=== PATIENT | male | born 1970 | race Caucasian/White ===

== ENCOUNTER 2023-01-16 23:15 | Inpatient (IN) | payer MEDICAID ==
[~2023-01-16] VITALS: Ht 182.9 cm; Wt 81.8 kg
[~2023-01-16 23:15] MED LIST: ALBU8HFA PO; BECL10.6 INH; FAMO-49 PO; HYDR-3965 PO; MULT-1085 PO; ROSU10TA2 PO; TIZA4CAP PO; TRAZ-251 PO
[2023-01-16] MEDS ORDERED: TETanus/Pertussis (Acell)/Diphther VAC/PF (Tdap-Adult) 0.5ml syringe IMVAC ONE (23:30)
[2023-01-16] MEDS ORDERED: amox tr/potassium clavulanate 875/125mg TAB PO ONE (23:30)
[2023-01-17] VITALS (19 sets, daily range): BP systolic 126–159; BP diastolic 65–94; PULSE 63–106; RESP 14–25; TEMP 97.8–99.8; O2SAT 94–100
[2023-01-17] MEDS ORDERED: TETanus/Pertussis (Acell)/Diphther VAC/PF (Tdap-Adult) 0.5ml syringe IMVAC ONE (00:40)
[2023-01-17] MEDS ORDERED: amox tr/potassium clavulanate 875/125mg TAB PO ONE (00:40)
[2023-01-17] MEDS ORDERED: CefTRIAXone 2gm/D5W 50ml BAG 50 ML IV ONE (00:50)
[2023-01-17] MEDS ORDERED: normal saline 1000ML IV soln IV ONE (00:50)
[2023-01-17] MEDS ORDERED: vancomycin/NS 1 GM ADD-VANTAGE 250 ML IV ONE (00:55)
[2023-01-17] MEDS ORDERED: HYDROmorphone 1 mg/ml syringe IV ONE ×3 (01:10→03:10)
[2023-01-17] MEDS ORDERED: ACET-75 PO (01:39)
[2023-01-17] MEDS ORDERED: TIZA-205 PO (01:39)
[2023-01-17] MEDS ORDERED: HYDR-3973 PO (01:39)
[2023-01-17] MEDS ORDERED: TRAZ150T78 PO (01:39)
[2023-01-17] MEDS ORDERED: ROSU5TAB12 (01:39)
[2023-01-17] MEDS ORDERED: ASPI-1468 PO (01:39)
[2023-01-17] MEDS ORDERED: FAMO40TA8 PO (01:39)
[2023-01-17] MEDS ORDERED: IBUP-1985 (01:40)
[2023-01-17 01:45] LABS: ALANINE AMINOTRANSFERASE 19 U/L (12-78); ALBUMIN 3.8 G/DL (3.4-5.0); ALBUMIN/GLOBULIN RATIO 1.1 (1.1-1.5); ALKALINE PHOSPHATASE 76 IU/L (46-116); ASPARTATE AMINO TRANSFERASE 16 U/L (10-37); BILIRUBIN,TOTAL 0.7 MG/DL (0.1-1.0); BLOOD UREA NITROGEN 5 MG/DL (7-18); BUN/CREATININE RATIO 5.2 (10.0-20.0); CHLORIDE 102 MMOL/L (99-107); CREATININE 0.96 MG/DL (0.60-1.10); GLUCOSE 114 MG/DL (70-104); MAGNESIUM 1.9 MG/DL (1.5-2.4); POTASSIUM 3.6 MMOL/L (3.5-5.1); TOTAL CARBON DIOXIDE 22.2 MMOL/L (24-32); TOTAL PROTEIN 7.3 G/DL (6.4-8.2); eCRCL 100 ML/MIN; eGFR 83 ML/MIN
[2023-01-17 01:46] LABS: ANION GAP 13 (8-16); SODIUM 137 MMOL/L (135-145)
[2023-01-17 01:55] LABS: HEMATOCRIT 38.6 % (42.0-52.0); MEAN CORPUSCULAR HGB CONC 33.6 g/dL (33.0-36.5)
[2023-01-17 01:57] LABS: BASOPHILS # (AUTO) 0.1 X10'3 (0-0.2); BASOPHILS % (AUTO) 0.7 % (0-1); EOSINOPHILS % (AUTO) 0.3 % (0-6); LYMPHOCYTES # (AUTO) 2.5 X10'3 (1.1-4.8); LYMPHOCYTES % (AUTO) 15.3 % (21-51); MEAN CORPUSCULAR HEMOGLOBIN 30.4 PG (27.0-31.0); MEAN CORPUSCULAR VOLUME 90.5 FL (78-98); MEAN PLATELET VOLUME 8.5 FL (7.4-10.4); MONOCYTES # (AUTO) 1.6 X10'3 (0-0.9); MONOCYTES % (AUTO) 9.8 % (2-12); NEUTROPHILS # (AUTO) 12.2 X10'3 (1.8-7.7); NEUTROPHILS % (AUTO) 73.9 % (42-75); PLATELET COUNT 279 X10'3 (140-440); RED BLOOD COUNT 4.27 X10'6 (4.70-6.10); RED CELL DISTRIBUTION WIDTH 14.4 % (11.5-14.5); WHITE BLOOD COUNT 16.5 X10'3 (4.5-11.0)
[2023-01-17 02:17] LABS: BILIRUBIN,URINE NEGATIVE (Neg); CLARITY,URINE CLEAR (Clear); COLOR,URINE YELLOW (Yellow); GLUCOSE, URINE NEGATIVE (Neg); KETONES,URINE 15 mg/dl (Neg); LEUKOCYTE ESTERASE ,URINE NEGATIVE (Neg); NITRITES, URINE NEGATIVE (Neg); OCCULT BLOOD,URINE TRACE-INTACT (Neg); PH,URINE 7.5 (4.8-8.0); PROTEIN,URINE NEGATIVE (Neg); UROBILINOGEN,URINE 0.2 E.U/dL (0.2-1.0)
[2023-01-17 02:20] LABS: UA COLLECTION TYPE CLN CATCH MIDSTREAM
[2023-01-17 02:32] LABS: BACTERIA,URINE NONE SEEN /HPF (Neg); MUCUS STRANDS NONE SEEN /LPF (Neg); RBC,URINE 0-2 /HPF (0-2); SQUAMOUS EPITHELIAL CELL,UR NONE SEEN /LPF (FEW); WBC,URINE NONE SEEN /HPF (0-4)
[2023-01-17] MEDS ORDERED: magnesium 2GM in 50ml NS 50 ML IV PRN (03:15)
[2023-01-17] MEDS ORDERED: potassium Cl 40MEQ/1/2NS 520ml 520 ML IV PRN (03:15)
[2023-01-17] MEDS ORDERED: magnesium 4gm in 100ml NS 100 ML IV PRN (03:15)
[2023-01-17] MEDS ORDERED: ondansetron/PF 4mg/2ml inj IV PRN ×2 (03:15→14:15)
[2023-01-17] MEDS ORDERED: magnesium hydroxide 30ml (MOM) UD suspension PO PRN (03:15)
[2023-01-17] MEDS ORDERED: ketorolac trometh. 30mg/ml inj. IV ONE (03:20)
[2023-01-17] MEDS: PCA WASTE DOCUMENTATION 1 MG ML MC SCH ×2 (03:20→19:49)
[2023-01-17] MEDS ORDERED: naloxone 0.4 mg/ml inj IV PRN (03:20)
[2023-01-17] MEDS: normal saline 1000ml 1,000 ML IV SCH ×3 (03:25→20:09)
[2023-01-17 03:31] LABS: APTT 26 SECONDS (22-32); INR 0.9 INR; PROTHROMBIN TIME 10.1 SECONDS (9.0-12.0)
[2023-01-17] MEDS: HYDROMORPHONE IV SCH ×2 (04:58→05:00)
[2023-01-17] MEDS: SODIUM CHLORIDE IV SCH ×2 (04:58→05:00)
[2023-01-17] MEDS: mag hydrox/Alum hydrox/simeth 30ml oral suspension PO PRN ×2 (05:26→19:37)
[2023-01-17] MEDS: piperacillin/tazo 3.375gm/50ml 50 ML IV SCH ×2 (08:04→16:18)
[2023-01-17] MEDS: docusate sod 100mg capsule PO SCH ×2 (08:04→19:37)
[2023-01-17] MEDS: K and/or MAG REPLACEMENT MC SCH ×2 (08:55→20:00)
[2023-01-17] MEDS ORDERED: BUPIVAcaine 2.5mg/ml inj 50ml vial (contains preservative) ONE (13:46)
[2023-01-17] MEDS ORDERED: sevoflurane 250ml liquid IH ONE (14:12)
[2023-01-17] MEDS ORDERED: proCHLORperazine 10 MG/2 ml inj IV PRN (14:15)
[2023-01-17] MEDS ORDERED: meperidine/PF 25mg/ml syringe IV PRN ×2 (14:15)
[2023-01-17] MEDS ORDERED: morphine 2 MG/ML inj. syringe IV PRN (14:15)
[2023-01-17] MEDS ORDERED: morphine 4 MG/ML inj SYRINge IV PRN (14:15)
[2023-01-17] MEDS ORDERED: ringers solution, lacted 1,000 ML IV SCH (14:15)
[2023-01-17] MEDS ORDERED: fentaNYL/PF 50MCG/1 ML 2ML syringe ONE (14:17)
[2023-01-17] MEDS ORDERED: midazolam 1 mg/ML 2ml injection ONE (14:19)
[2023-01-17] MEDS ORDERED: propofol inj 20 ML IV ONE (14:20)
[2023-01-17] MEDS ORDERED: BUPIVAcaine 2.5mg/ml inj 50ml vial (contains preservative) SQ ONE (14:42)
[2023-01-17] MEDS: VANCOmycin 1250MG/NS 250ml Bag 250 ML IV SCH (15:11)
[2023-01-17] MEDS: meperidine/PF 25mg/ml syringe IV PRN ×3 (15:12→16:46)
[2023-01-17] MEDS ORDERED: acetaminophen 1,000mg/100ml IV 100 ML IV STA (15:13)
[2023-01-17] MEDS: HYDROcodone/acetaminophen 10/325mg tab PO PRN ×2 (16:46→23:48)
[2023-01-17] MEDS ORDERED: albuterol 2.5 MG/3 ML nebule NEB PRN (16:50)
[2023-01-17] MEDS ORDERED: morphine 2 MG/ML inj. syringe IV ONE (19:10)
[2023-01-17] MEDS: traZODone 150mg tablet PO SCH (20:10)
[2023-01-17] MEDS: famotidine 20mg tablet PO SCH (20:10)
[2023-01-18] VITALS (7 sets, daily range): BP systolic 147–163; BP diastolic 73–90; PULSE 68–79; RESP 16–18; TEMP 97.3–99.2; O2SAT 94–97
[2023-01-18] MEDS: piperacillin/tazo 3.375gm/50ml 50 ML IV SCH ×4 (00:26→23:38)
[2023-01-18] MEDS: HYDROmorphone 1 mg/ml syringe IV PRN ×3 (00:36→09:30)
[2023-01-18] MEDS: VANCOmycin 1250MG/NS 250ml Bag 250 ML IV SCH (03:10)
[2023-01-18] MEDS: acetaminophen 325mg tablet PO PRN ×3 (03:14→21:16)
[2023-01-18 06:11] LABS: BASOPHILS # (AUTO) 0.1 X10'3 (0-0.2); BASOPHILS % (AUTO) 0.4 % (0-1); EOSINOPHILS % (AUTO) 0.1 % (0-6); HEMATOCRIT 35.9 % (42.0-52.0); HEMOGLOBIN 11.8 g/dl (14.0-17.9); LYMPHOCYTES # (AUTO) 2.4 X10'3 (1.1-4.8); LYMPHOCYTES % (AUTO) 14.7 % (21-51); MEAN CORPUSCULAR HEMOGLOBIN 30.1 PG (27.0-31.0); MEAN CORPUSCULAR HGB CONC 32.8 g/dL (33.0-36.5); MEAN CORPUSCULAR VOLUME 91.6 FL (78-98); MONOCYTES % (AUTO) 12.2 % (2-12); NEUTROPHILS % (AUTO) 72.6 % (42-75); PLATELET COUNT 225 X10'3 (140-440); RED BLOOD COUNT 3.92 X10'6 (4.70-6.10); RED CELL DISTRIBUTION WIDTH 14.4 % (11.5-14.5); WHITE BLOOD COUNT 16.5 X10'3 (4.5-11.0)
[2023-01-18 06:38] LABS: ALANINE AMINOTRANSFERASE 17 U/L (12-78); ALBUMIN/GLOBULIN RATIO 0.9 (1.1-1.5); ALKALINE PHOSPHATASE 68 IU/L (46-116); ANION GAP 11 (8-16); ASPARTATE AMINO TRANSFERASE 15 U/L (10-37); BILIRUBIN,TOTAL 0.6 MG/DL (0.1-1.0); BLOOD UREA NITROGEN 4 MG/DL (7-18); CALCIUM 8.3 MG/DL (8.5-10.1); CHLORIDE 102 MMOL/L (99-107); GLUCOSE 98 MG/DL (70-104); POTASSIUM 3.6 MMOL/L (3.5-5.1); SODIUM 136 MMOL/L (135-145); TOTAL CARBON DIOXIDE 23.1 MMOL/L (24-32); TOTAL PROTEIN 6.5 G/DL (6.4-8.2); eCRCL 120 ML/MIN; eGFR > 90 ML/MIN
[2023-01-18] MEDS: HYDROcodone/acetaminophen 10/325mg tab PO PRN (07:19)
[2023-01-18] MEDS: docusate sod 100mg capsule PO SCH ×2 (07:39→20:00)
[2023-01-18] MEDS: ROSUVASTATIN CALCIUM 5 MG TABLET PO SCH (07:39)
[2023-01-18] MEDS: K and/or MAG REPLACEMENT MC SCH ×2 (07:45→20:00)
[2023-01-18] MEDS ORDERED: FLU VACC QS2023-24(6MOS UP)/PF 60 MCG/0.5 ML SYRINGE IM ONE (10:00)
[2023-01-18] MEDS: vancomycin/NS 1 GM ADD-VANTAGE 250 ML IV SCH ×2 (10:48→18:40)
[2023-01-18] MEDS ORDERED: oxyCODONE IR 5mg (immed. release) tablet PO PRN (13:00)
[2023-01-18] MEDS: oxyCODONE IR 5mg (immed. release) tablet PO PRN ×3 (13:12→21:17)
[2023-01-18] MEDS: traZODone 150mg tablet PO SCH (21:18)
[2023-01-18] MEDS: famotidine 20mg tablet PO SCH (21:18)
[2023-01-18] MEDS: mag hydrox/Alum hydrox/simeth 30ml oral suspension PO PRN (21:21)
[2023-01-19] MEDS: vancomycin/NS 1 GM ADD-VANTAGE 250 ML IV SCH ×2 (01:57→09:35)
[2023-01-19] MEDS: oxyCODONE IR 5mg (immed. release) tablet PO PRN ×4 (01:59→16:51)
[2023-01-19] MEDS: acetaminophen 325mg tablet PO PRN (03:29)
[2023-01-19] MEDS ORDERED: HYDROmorphone 1 mg/ml syringe IV ONE (04:00)
[2023-01-19 06:00] VITALS: BP 137/90; PULSE 99; RESP 18; TEMP 98.4; O2SAT 97
[2023-01-19 07:32] VITALS: RESP 16; O2SAT 97
[2023-01-19] MEDS: piperacillin/tazo 3.375gm/50ml 50 ML IV SCH ×2 (07:32→16:00)
[2023-01-19] MEDS: ROSUVASTATIN CALCIUM 5 MG TABLET PO SCH (07:36)
[2023-01-19] MEDS: docusate sod 100mg capsule PO SCH (07:37)
[2023-01-19] MEDS: K and/or MAG REPLACEMENT MC SCH (07:37)
[2023-01-19] MEDS ORDERED: aspirin 325mg tablet, delayed-release (Ecotrin) PO SCH (08:00)
[2023-01-19] MEDS ORDERED: VANCOMYCIN LEVEL IV ONE (08:30)
[2023-01-19 08:53] LABS: BASOPHILS # (AUTO) 0.1 X10'3 (0-0.2); BASOPHILS % (AUTO) 0.6 % (0-1); EOSINOPHILS # (AUTO) 0.1 X10'3 (0-0.9); EOSINOPHILS % (AUTO) 0.5 % (0-6); HEMATOCRIT 37.6 % (42.0-52.0); HEMOGLOBIN 12.3 g/dl (14.0-17.9); LYMPHOCYTES # (AUTO) 1.2 X10'3 (1.1-4.8); MEAN CORPUSCULAR HEMOGLOBIN 29.7 PG (27.0-31.0); MEAN CORPUSCULAR HGB CONC 32.8 g/dL (33.0-36.5); MEAN CORPUSCULAR VOLUME 90.8 FL (78-98); MEAN PLATELET VOLUME 8.3 FL (7.4-10.4); MONOCYTES # (AUTO) 1.2 X10'3 (0-0.9); MONOCYTES % (AUTO) 9.3 % (2-12); NEUTROPHILS # (AUTO) 9.8 X10'3 (1.8-7.7); NEUTROPHILS % (AUTO) 79.6 % (42-75); PLATELET COUNT 226 X10'3 (140-440); RED BLOOD COUNT 4.14 X10'6 (4.70-6.10); WHITE BLOOD COUNT 12.4 X10'3 (4.5-11.0)
[2023-01-19 09:09] LABS: ALANINE AMINOTRANSFERASE 15 U/L (12-78); ALBUMIN 2.9 G/DL (3.4-5.0); ALBUMIN/GLOBULIN RATIO 0.7 (1.1-1.5); ALKALINE PHOSPHATASE 65 IU/L (46-116); ANION GAP 6 (8-16); ASPARTATE AMINO TRANSFERASE 12 U/L (10-37); BILIRUBIN,TOTAL 0.5 MG/DL (0.1-1.0); BLOOD UREA NITROGEN 5 MG/DL (7-18); BUN/CREATININE RATIO 6.3 (10.0-20.0); CALCIUM 8.7 MG/DL (8.5-10.1); CHLORIDE 101 MMOL/L (99-107); CREATININE 0.79 MG/DL (0.60-1.10); GLUCOSE 162 MG/DL (70-104); POTASSIUM 3.2 MMOL/L (3.5-5.1); SODIUM 134 MMOL/L (135-145); TOTAL CARBON DIOXIDE 26.9 MMOL/L (24-32); TOTAL PROTEIN 6.8 G/DL (6.4-8.2); eCRCL 121 ML/MIN; eGFR > 90 ML/MIN
[2023-01-19 10:00] VITALS: BP 137/86; PULSE 70; RESP 16; TEMP 97.8; O2SAT 97
[2023-01-19] MEDS ORDERED: potassium Cl 20 mEq SR tablet PO STA (11:25)
[2023-01-19] MEDS ORDERED: ketorolac trometh. 30mg/ml inj. IV ONE (12:20)
[2023-01-19] MEDS ORDERED: HYDR-3973 PO ×2 (14:35→15:35)
[2023-01-19] MEDS ORDERED: CLIN-91 PO (14:43)
[2023-01-19] MEDS ORDERED: HYDROcodone/acetaminophen 10/325mg tab PO PRN (15:35)
[2023-01-19] MEDS ORDERED: IBUP-1985 PO (16:18)
[2023-01-19] MEDS ORDERED: VANCOmycin 1250MG/NS 250ml Bag 250 ML IV SCH (17:00)
[2023-01-20] MEDS ORDERED: VANCOMYCIN LEVEL IV ONE (16:30)
== END 2023-01-19 16:54 | disposition home or self-care (01) | DRG 316 ==
LOC: ER 23:16 → ED HOLD 01-17 03:17 → EDBEDREQ 01-17 12:03 → ORTHO 4S 01-17 15:29
PROVIDERS: ADMIT Internal Medicine; ATTEND Internal Medicine
PROC: 0RBU0ZZ Excision of Right Metacarpophalangeal Joint, Open Approach (ICD-10-PCS; principal; 2023-01-17 14:12)
DX: M65.841 Other synovitis and tenosynovitis, right hand (principal); M00.9 Pyogenic arthritis, unspecified; L03.113 Cellulitis of right upper limb; F90.9 Attention-deficit hyperactivity disorder, unspecified type; I10 Essential (primary) hypertension; M17.10 Unilateral primary osteoarthritis, unspecified knee; S61.252A Open bite of right middle finger without damage to nail, initial encounter; Z96.651 Presence of right artificial knee joint; Y04.1XXA Assault by human bite, initial encounter; Y93.89 Activity, other specified; Y92.89 Other specified places as the place of occurrence of the external cause; Y99.8 Other external cause status; Z79.82 Long term (current) use of aspirin; Z79.899 Other long term (current) drug therapy
CPT/HCPCS: 36415; 71045; 73130; 80053; 80202; 81001; 83605; 83735; 84145; 85025; 85610; 85730; 87040; 87070; 87075; 87077; 87081; 87186; 90686; 90715; 93005; 99285; A4215; A4618; A6222; A6253; A6258; A6446; A6449; A7000; G0378; J0131; J0696; J1170; J1885; J2175; J2250; J2270; J2405; J2543; J2704; J3010; J3370; J3490; J7030